=== PATIENT | male | born 1960 | race Caucasian/White ===

== ENCOUNTER → 2021-05-24 | Outpatient (CLI) | payer BC ==
[~2021-05-24] MED LIST: CELEBREX200 MG PO; CETIRIZINE HCL10 MG PO; COUMADIN 1MG TAB1 MG PO; COUMADIN6 MG PO; FISH OIL 2000 MG PO; FLOMAX 0.4 MG0.4 MG PO; FOLIC ACID PO; HYDROCODON-ACE1 EAC2 PO; LOVENOX30 MG/0.3 SQ; NEURONTIN300 MG PO; NORCO 7.5-3251 EACH PO; PERCOCET 10-321 EACH PO; PROSCAR 5 MG TAB5 MG PO; VITAMIN B12 PO; VITAMIN B6 PO; VITAMIN D PO; WELLBUTRIN XL300 M1 PO; ZOCOR10 MG PO
[2021-05-24 12:28] LABS: RED BLOOD COUNT 4.88 M/UL (4.20-5.50); WHITE BLOOD COUNT 5.3 K/UL (4.5-11.0)
[2021-05-24 12:53] LABS: BUN/CREATININE RATIO 14 (0-10)
== END ==
LOC: OPSV2 11:00 → EDSTATUS 11:00 → OPSV2 11:04
PROVIDERS: Orthopaedic Surgery
DX: Z01.818 Encounter for other preprocedural examination (principal); M17.11 Unilateral primary osteoarthritis, right knee; Z20.822 Contact with and (suspected) exposure to COVID-19
CPT/HCPCS: 36415; 71046; 80048; 81001; 85027; 87081; 93005

== ENCOUNTER → 2021-06-07 | Outpatient (CLI) | payer BC ==
[2021-06-07 12:08] LABS: BUN/CREATININE RATIO 14 (0-10)
== END ==
LOC: LAB 10:48
PROVIDERS: Orthopaedic Surgery
DX: Z01.812 Encounter for preprocedural laboratory examination (principal)
CPT/HCPCS: 80048; 85610; 85730; 86850; 86900; 86901

== ENCOUNTER → 2021-08-18 | Outpatient (CLI) | payer BC ==
[~2021-08-18] MED LIST changes: +FISH OIL 1,2001 EAC1 PO; +GLUCOSAMINE CO1 EACH PO; +HYDROCODONE-AC1 EAC1 PO; +ZOCOR40 MG PO
[2021-08-18 12:45] LABS: HEMOGLOBIN 14.7 gm/dl (14.0-17.5); RED BLOOD COUNT 4.99 M/UL (4.20-5.50); WHITE BLOOD COUNT 6.1 K/UL (4.5-11.0)
[2021-08-18 13:04] LABS: BUN/CREATININE RATIO 17 (0-10)
== END ==
LOC: OPSV2 09:00 → EDSTATUS 11:30 → OPSV2 11:30
PROVIDERS: Orthopaedic Surgery
DX: Z01.818 Encounter for other preprocedural examination (principal); M17.11 Unilateral primary osteoarthritis, right knee
CPT/HCPCS: 36415; 71046; 80048; 85027; 85610; 85730; 93005

== ENCOUNTER → 2021-08-30 | Outpatient (CLI) | payer BC ==
[~2021-08-30] MED LIST changes: +CYCLOBENZAPRINE10 MG PO; +ENDOCET 10-3251 EACH PO; +HYDROCODON-ACE1 EAC6 PO
[2021-08-30 11:19] LABS: BUN/CREATININE RATIO 16 (0-10)
== END ==
LOC: LAB 09:48
PROVIDERS: Orthopaedic Surgery
DX: Z01.812 Encounter for preprocedural laboratory examination (principal)
CPT/HCPCS: 36415; 80048; 85610; 85730; 86850; 86900; 86901

== ENCOUNTER 2021-08-31 05:50 | Day surgery (SDC) | payer BC ==
[~2021-08-31] VITALS: Ht 177.8 cm; Wt 112.5 kg
[~2021-08-31 05:50] MED LIST changes: -CYCLOBENZAPRINE10 MG PO; -ENDOCET 10-3251 EACH PO; -HYDROCODON-ACE1 EAC6 PO; -HYDROCODONE-AC1 EAC1 PO
[2021-08-31] MEDS ORDERED: ENDOCET 10-3251 EACH PO (10:18)
[2021-09-01 04:24] LABS: HEMOGLOBIN 12.1 gm/dl (14.0-17.5); RED BLOOD COUNT 3.96 M/UL (4.20-5.50); WHITE BLOOD COUNT 20.7 K/UL (4.5-11.0)
[2021-09-01 04:48] LABS: BUN/CREATININE RATIO 19 (0-10)
--- NOTE | 2021-09-01 05:39 | NUR ---
PT WORE POLAR ICE CONTINUOUSLY FOR THE ENTIRE SHIFT EXCEPT FOR THREE TIMES WHEN THE PATIENT WALKED AROUND THE FACILITY USING HIS WALKER. PT TOLERATED CRYOTHERPAY VERY WELL.
[2021-09-01] MEDS ORDERED: CYCLOBENZAPRINE10 MG PO (12:01)
[2021-09-01] MEDS ORDERED: HYDROCODONE-AC1 EAC1 PO (12:27)
[2021-09-01] MEDS ORDERED: HYDROCODON-ACE1 EAC6 PO (13:33)
== END 2021-09-01 13:00 | disposition home or self-care (01) ==
LOC: OR 05:50 → M/S 11:41 → OR 09-01 13:00
PROVIDERS: Orthopaedic Surgery
DX: M17.11 Unilateral primary osteoarthritis, right knee (principal); M21.161 Varus deformity, not elsewhere classified, right knee; Z88.5 Allergy status to narcotic agent; Z88.8 Allergy status to other drugs, medicaments and biological substances; E78.5 Hyperlipidemia, unspecified; Z96.652 Presence of left artificial knee joint; Z79.01 Long term (current) use of anticoagulants; Z20.822 Contact with and (suspected) exposure to COVID-19; Z87.891 Personal history of nicotine dependence; N40.0 Benign prostatic hyperplasia without lower urinary tract symptoms
CPT/HCPCS: 36415; 73560; 80048; 85027; 97116-GP-CQ; 97161; 97166; 97535; C1776; J0171; J0690; J1100; J1170; J2250; J2405; J2704; J2795; J3010; J3370; J3415; J7120